=== PATIENT | female | born 1955 | race Caucasian/White ===

== ENCOUNTER → 2023-05-31 17:07 | Outpatient (REF) | payer MEDICARE, BC, SELFPAY | LOC: RAD 17:07 | PROVIDERS: ATTENDING PHYSICIAN Nurse Practitioner | DX: M54.6 Pain in thoracic spine (principal) | CPT/HCPCS: 72072 ==

== ENCOUNTER → 2024-01-09 12:46 | Outpatient (REF) | payer MEDICARE, BC, SELFPAY | LOC: RCS 12:46 | PROVIDERS: ATTENDING PHYSICIAN Nurse Practitioner | DX: R07.9 Chest pain, unspecified (principal) | CPT/HCPCS: 93017 ==

== ENCOUNTER → 2024-01-23 09:30 | Outpatient (REF) | payer MEDICARE, BC, SELFPAY | LOC: RCS 09:30 | PROVIDERS: ATTENDING PHYSICIAN Nurse Practitioner | DX: R00.2 Palpitations (principal) | CPT/HCPCS: 93225; 93226 ==

== ENCOUNTER → 2024-03-27 16:46 | Outpatient (REF) | payer MEDICARE, BC, SELFPAY | LOC: RAD 16:46 | PROVIDERS: ATTENDING PHYSICIAN Internal Medicine Cardiovascular Disease; FAMILY PHYSICIAN Nurse Practitioner | DX: E78.2 Mixed hyperlipidemia (principal); Z82.49 Family history of ischemic heart disease and other diseases of the circulatory system | CPT/HCPCS: 75571 ==

== ENCOUNTER → 2024-04-02 16:07 | Outpatient (REF) | payer MEDICARE, BC, SELFPAY | LOC: RCS 16:07 | PROVIDERS: ATTENDING PHYSICIAN Internal Medicine Cardiovascular Disease; FAMILY PHYSICIAN Nurse Practitioner | DX: R00.2 Palpitations (principal) | CPT/HCPCS: 93306 ==

== ENCOUNTER → 2024-09-23 14:25 | Outpatient (REF) | payer MEDICARE, BC, SELFPAY | LOC: WDC 14:25 | PROVIDERS: ATTENDING PHYSICIAN Nurse Practitioner | DX: Z12.31 Encounter for screening mammogram for malignant neoplasm of breast (principal) | CPT/HCPCS: 77063; 77067 ==